=== PATIENT | male | born 1960 | race Caucasian/White ===

== ENCOUNTER 2018-02-02 18:27 | Emergency (ER) | payer OTHER ==
[~2018-02-02] VITALS: Ht 185.4 cm; Wt 100.0 kg
[2018-02-02 18:48] VITALS: BP 129/74; PULSE 72; RESP 18; TEMP 98; O2SAT 98
[2018-02-02] MEDS ORDERED: BACT800T5 PO (19:20)
[2018-02-02] MEDS ORDERED: CEPH-460 PO (19:20)
--- NOTE | 2018-02-02 19:20 | PD ---
HPI Chief Complaint: Pain: Acute or Chronic Time Seen by Provider: 19:01 Travel History International Travel<30 days: No Contact w/Intl Traveler<30days: No Traveled to known affect area: No History of Present Illness HPI 57-year-old male here for evaluation of left ankle pain and swelling. Symptoms started about a week and a half ago with pain over a callus on the plantar aspect of his left/lateral foot. This pain was described as sharp, worse with weightbearing. Since yesterday he noticed pain radiating to his left ankle and today he noticed left ankle swelling. No pain in his left calf. No chest pain or dyspnea. No fevers or chills. No history of DVT or PE. Pain is mild and only occurs when weightbearing. Patient works as an x-ray tech and reports having a skin infection on his left arm a couple of weeks ago. No recent travel or immobilization. [facility] Social History Tobacco Use: No Allergies-Medications (Allergen,Severity, Reaction): Coded Allergies: No Known Allergies (Unverified , 02/02/18) Reported Meds & Prescriptions Reported Meds & Active Scripts Active Keflex (Cephalexin) 500 Mg Cap 500 Mg PO Q8H Bactrim DS (Sulfamethoxazole-Trimethoprim) 800-160 Mg Tab 1 Tab PO BID Review of Systems Except as stated in HPI: all other systems reviewed are Neg Physical Exam Narrative GENERAL: Well-developed, well-nourished, comfortable, no apparent distress. SKIN: Focused skin assessment warm/dry. Mild warmth and erythema to the left ankle and foot without crepitus, without red streaks, without fluctuance or induration. Plantar aspect of left foot with moderate sized firm callus laterally as well as one medially. No open wounds or ulcerations. HEAD: Atraumatic. Normocephalic. EYES: Pupils equal and round. No scleral icterus. No injection or drainage. ENT: No nasal bleeding or discharge. Mucous membranes pink and moist. NECK: Trachea midline. No JVD. CARDIOVASCULAR: Regular rate and rhythm. Bilateral dorsalis pedis pulses are brisk and equal. RESPIRATORY: No accessory muscle use. Clear to auscultation. Breath sounds equal bilaterally. MUSCULOSKELETAL: Mild edema to the left foot and ankle. Bilateral calves are supple, nontender. Skin exam as above. NEUROLOGICAL: Awake and alert. No obvious cranial nerve deficits. Motor grossly within normal limits. Normal speech. PSYCHIATRIC: Appropriate mood and affect; insight and judgment normal. Data Data Last Documented VS Vital Signs Date Time Temp Pulse Resp B/P (MAP) Pulse Ox O2 Delivery O2 Flow Rate FiO2 02/02/18 18:48 98.0 72 18 129/74 (92) 98 Orders Orders Ed Discharge Order (02/02/18 19:22) MDM Medical Decision Making Medical Screen Exam Complete: Yes Emergency Medical Condition: Yes Differential Diagnosis Cellulitis, DVT, venous insufficiency, gout Narrative Course Vital signs reviewed and are within normal limits. I discussed with the patient that I would like to move forward with workup for possible DVT as well as cellulitis and would like to perform lab work, left lower extremity venous duplex, and x-rays of the left foot and ankle. At this time the patient prefers to attempt treatment with antibiotics for likely cellulitis. I do not believe that this is unreasonable as patient has no history of DVT and has no risk factors for DVTs or PEs. I will start him on Bactrim and Keflex and will given the name of the marble worker bond clerk to make an appointment with this week. He was advised on when to return to the emergency department. He verbalizes understanding and agreement with plan. Diagnosis Primary Impression: Cellulitis of left foot Referrals: Jyoti Zhang DPM 3 days [facility] Additional Instructions: Follow-up with a primary care physician this week. Follow-up with marble worker Dr. Zhang or a marble worker of your choice this week. Return to the emergency department for worsening symptoms or any other concerns. Scripts Cephalexin (Keflex) 500 Mg Cap 500 MG PO Q8H for Infection, #30 CAP 0 Refills Prov: Curtis Castelan MD 02/02/18 Sulfamethoxazole-Trimethoprim (Bactrim DS) 800-160 Mg Tab 1 TAB PO BID for Infection, #20 TAB 0 Refills Prov: Curtis Castelan MD 02/02/18 Disposition: 01 DISCHARGE HOME Condition: Stable Curtis Castelan MD February 02, 2018 19:20
== END 2018-02-02 19:42 | disposition home or self-care (01) ==
LOC: NEPD 18:27
DX: L03.116 Cellulitis of left lower limb (principal)
CPT/HCPCS: 99283